=== PATIENT | female | born 1960 | race Caucasian/White ===

== ENCOUNTER → 2018-01-27 | Outpatient (CLI) | payer OTHER, MEDICAID ==
[~2018-01-27] MED LIST: ANTIVERT25 MG PO; ASPIR 8181 MG PO; ATORVASTATIN CA40 MG PO; CLONAZEPAM 1 MG1 M1 PO; CYMBALTA60 MG PO; KEPPRA 500 MG500 M1 PO; LASIX 40 MG TAB40 M2 PO; LISINOPRIL2.5 MG PO; MYRBETRIQ25 MG PO; NEXIUM40 MG PO; NORCO 10-325 T1 EACH PO; OMEPRAZOLE20 MG PO; OXYCONTIN20 M1 PO; PRIMIDONE50 MG PO; PROAIR HFA8.5 GM; VITAMIN B-12500 MCG PO; VITAMIN D2000 UNIT PO; VITAMINC500 PO; XANAX 0.25 MG0.25 MG PO; XANAX1 MG PO; ZOLOFT50 MG PO; ZYPREXA15 MG PO
== END ==
LOC: M.CT 10:43
DX: J43.9 Emphysema, unspecified (principal); R91.1 Solitary pulmonary nodule

== ENCOUNTER → 2018-05-06 | Outpatient (CLI) | payer OTHER, MEDICAID | LOC: M.CT 11:12 | DX: I25.10 Atherosclerotic heart disease of native coronary artery without angina pectoris (principal); R91.1 Solitary pulmonary nodule; J44.9 Chronic obstructive pulmonary disease, unspecified ==

== ENCOUNTER 2018-07-30 09:39 | Emergency (ER) | payer OTHER, MEDICAID ==
[~2018-07-30] VITALS: Ht 165.1 cm; Wt 112.0 kg
[~2018-07-30 09:39] MED LIST changes: -CLONAZEPAM 1 MG1 M1 PO; -MYRBETRIQ25 MG PO; -OMEPRAZOLE20 MG PO; -PRIMIDONE50 MG PO; -PROAIR HFA8.5 GM; -XANAX 0.25 MG0.25 MG PO
[2018-07-30] MEDS ORDERED: XANAX 0.25 MG0.25 MG PO (09:49)
[2018-07-30] MEDS ORDERED: PROAIR HFA8.5 GM (09:49)
[2018-07-30] MEDS ORDERED: CLONAZEPAM 1 MG1 M1 PO (09:49)
[2018-07-30] MEDS ORDERED: PRIMIDONE50 MG PO (09:49)
[2018-07-30] MEDS ORDERED: MYRBETRIQ25 MG PO (09:49)
[2018-07-30] MEDS ORDERED: OMEPRAZOLE20 MG PO (09:49)
[2018-07-30 10:16] LABS: ABSOLUTE BASOPHILS 0.1 thou/uL (0.0-0.2); ABSOLUTE EOSINOPHILS 0.3 thou/uL (0.0-0.7); ABSOLUTE LYMPHOCYTES 2.3 thou/uL (0.8-5.3); ABSOLUTE MONOCYTES 0.7 thou/uL (0.0-1.2); ABSOLUTE NEUTROPHILS 13.1 thou/uL (1.6-8.1); BASOPHILS 0.4 %; EOSINOPHILS 1.8 %; HEMATOCRIT 42.6 % (37.0-47.0); HEMOGLOBIN 13.7 gm/dL (12.0-15.0); LYMPHOCYTES 13.8 %; MCH 30.6 pg (26.0-34.0); MCHC 32.3 g/dL (28.0-37.0); MCV 94.9 fL (80.0-100.0); MONOCYTES 4.1 %; MPV 7.1 fl. (7.2-11.1); NUCLEATED RBCS 0 /100WBC; PLATELET COUNT* 306 thou/uL (150-400); POLYS 79.9 %; RBC 4.49 mil/uL (4.20-5.00); RDW-CV 15.4 % (10.5-14.5); WBC 16.4 thou/uL (4.0-11.0)
[2018-07-30 10:18] LABS: ANION GAP < 0 mmol/L (7-16); BUN 17 mg/dL (7-18); CALCIUM 8.4 mg/dL (8.5-10.1); CHLORIDE 98 mmol/L (98-107); CO2 40 mmol/L (21-32); CREATININE 0.8 mg/dL (0.6-1.3); GLUCOSE 115 mg/dL (70-99); POTASSIUM 4.5 mmol/L (3.5-5.1); SODIUM 136 mmol/L (136-145)
[2018-07-30 10:21] LABS: APTT 24.8 Seconds (25.0-31.3)
[2018-07-30 10:25] LABS: ALBUMIN 3.8 g/dL (3.4-5.0); ALKALINE PHOSPHATASE 66 U/L (46-116); SGOT 17 U/L (15-37); SGPT 26 U/L (30-65); TOTAL BILIRUBIN 0.2 mg/dL (<0.1-1.0); TOTAL PROTEIN 7.2 g/dL (6.4-8.2); TROPONIN-I LEVEL 0.15 ng/mL (<0.06)
[2018-07-30 12:49] VITALS: BP 160/81
--- NOTE | 2018-07-31 10:57 | EKG ---
[place] [address] ELECTROCARDIOGRAM REPORT Name: DAVID PEREIRA Room: [facility]#: [id number] Admission: 07/30/18 Attend Phys: Discharge: 07/30/18 Date of : 58 Report #: [id number] THIS REPORT FOR: //name// [facility] ED Test Date: 2018-07-30 Test Time: 09:59:11 Pat Name: DAVID PEREIRA Department: Room: Gender: F Calculus Tutor: Jackie PAZ : 1960 Requested By: Jadon Wei Order Number: [id number] MD: Fausto Machado Measurements Intervals Violet Rate: 92 P: 51 ID: [id number] QRS: -24 QRSD: 85 T: 45 QT: 343 QTc: 425 Interpretive Statements Sinus rhythm Borderline left axis deviation No previous ECG available for comparison Electronically Signed On 07-31-2018 10:57:20 CDT by Fausto Machado [email or web address] <ELECTRONICALLY SIGNED> By: Rigo Machado MD, [facility] 07/31/18 1057 [phone] Rigo Machado MD, FACC /EPI
== END 2018-07-30 12:49 | disposition short-term general hospital (02) ==
LOC: M.ERS 09:39
PROVIDERS: Family Medicine
DX: S27.321A Contusion of lung, unilateral, initial encounter (principal); S22.41XA Multiple fractures of ribs, right side, initial encounter for closed fracture; J93.9 Pneumothorax, unspecified; J44.9 Chronic obstructive pulmonary disease, unspecified; C71.9 Malignant neoplasm of brain, unspecified; R79.89 Other specified abnormal findings of blood chemistry; Z88.1 Allergy status to other antibiotic agents; Z88.2 Allergy status to sulfonamides; Z88.8 Allergy status to other drugs, medicaments and biological substances; W18.39XA Other fall on same level, initial encounter; Y93.89 Activity, other specified; Y92.098 Other place in other non-institutional residence as the place of occurrence of the external cause; Y99.8 Other external cause status

== ENCOUNTER → 2018-11-01 | Outpatient (CLI) | payer OTHER, MEDICAID ==
[~2018-11-01] MED LIST changes: +B-121000 MC2 PO; +CLONAZEPAM 1 MG1 M1 PO; +DEXAMETHASONE 22 M1 PO; +DULERA 200 MCG/13 GM INH; +LISINOPRIL20 MG PO; +MIRALAX17 GM PO; +MYRBETRIQ25 MG PO; +NORVASC5 MG PO; +OMEPRAZOLE20 MG PO; +POTASSIUM20 PO; +PRIMIDONE50 MG PO; +PROAIR HFA8.5 GM; +TOPAMAX100 MG PO; +TUDORZA PRESS400 MCG INH; +XANAX 0.25 MG0.25 MG PO
--- NOTE | 2018-11-02 20:04 | SLEEP ---
[address] [address] SLEEP STUDY REPORT Name: DAVID PEREIRA Room: [facility]#: [id number] Admission: 11/01/18 Attend Phys: Nora Robledo MD Discharge: Date of : 58 Report #: [id number] THIS REPORT FOR: //name// CC: Nora Galindo This study has been reviewed in its entirety by a board certified sleep specialist DATE OF SERVICE: 11/01/2018 ATTENDING PHYSICIAN: Dr. Germain Robledo. The patient is a 58-year-old who weighs 262 pounds and is 70 inches tall with a BMI of 37.6. The patient's [place] score is 1. The patient also has history of COPD and is on home oxygen up to 5 liters. She was referred for evaluation of sleep apnea. During the night study, the patient spent 181 minutes in bed and slept for 56 minutes with a sleep efficiency of 31%. Sleep latency was 66.8 minutes with a REM latency which was absent. Overall sleep architecture showed normal stage 1 and stage 2 sleep, increased N3 sleep, which was 38% of the total sleep time, and absent REM sleep. During the night of the study, the patient had 1 apnea, which was obstructive, and 13 hypopneas. The patient's apnea-hypopnea index was 15 per hour. REM sleep was not seen. The patient's supine index was 37 per hour. EKG monitoring revealed an average heart rate of 110 beats per minute with a maximum of 163 beats per minute during sleep. PLMS were seen at an index of 168 per hour, but only 1 per hour caused EEG arousals. Nocturnal oximetry study revealed an average oxygen saturation of 91% with the lowest of 82%. Fifty minutes were spent in oxygen saturation between 80-89%. The patient did meet the criteria for CPAP/BiPAP titration study. However, the patient was very restless and dyspneic, along with tachycardic. She was placed on CPAP, but she could not tolerate and BiPAP was attempted. However, after a very short time on BiPAP the patient continued to have progressive dyspnea along with wheezing. As a result, she discontinued the study and was taken to the Emergency Room. The patient would benefit from return to the sleep lab for a titration study once [place] [address] SLEEP STUDY REPORT Name: DAVID PEREIRA Room: [facility]#: [id number] Admission: 11/01/18 Attend Phys: Nora Robledo MD Discharge: Date of : 58 Report #: [id number] IMPRESSION: 1. Mild sleep apnea with worsening during supine sleep. Total apnea-hypopnea index of 15 per hour with a supine apnea-hypopnea index of 37 per hour. Absence of REM sleep and limited sleep time could have underestimated the patient's severity of sleep apnea. 2. Severe periodic limb movements of sleep. 3. Nocturnal hypoxia secondary to sleep apnea and underlying hypoventilation. RECOMMENDATIONS: 1. The patient became tachypneic and hypoxic along with development of bronchospasm. As a result, a CPAP/BiPAP titration study could not be accomplished and the patient was sent to the ER. The patient would benefit from return to the sleep lab for CPAP/BiPAP titration study when she is clinically stable. 2. PLMS can be further treated with dopaminergic agonist agents. The patient should also be further evaluated for symptoms of restless legs during the day. 3. Weight loss is strongly advised. 4. Avoid RECREATION THERAPY DIRECTOR depressants. 5. Cautioned regarding driving until the patient's symptoms of sleep apnea have resolved with the above recommendations. <ELECTRONICALLY SIGNED> By: Reza Lechuga MD 11/02/182003 1623 1659Amarlon Lechuga MD /nt
== END ==
LOC: M.SLEEPLAB 08-16 21:00
DX: G47.33 Obstructive sleep apnea (adult) (pediatric) (principal); R09.02 Hypoxemia; G47.61 Periodic limb movement disorder

== ENCOUNTER 2018-11-02 01:33 | Emergency (ER) | payer OTHER, MEDICAID ==
[~2018-11-02 01:33] MED LIST changes: -B-121000 MC2 PO; -DEXAMETHASONE 22 M1 PO; -DULERA 200 MCG/13 GM INH; -LISINOPRIL20 MG PO; -MIRALAX17 GM PO; -NORVASC5 MG PO; -POTASSIUM20 PO; -TOPAMAX100 MG PO; -TUDORZA PRESS400 MCG INH
[2018-11-02] MEDS ORDERED: NORVASC5 MG PO (23:08)
[2018-11-02] MEDS ORDERED: B-121000 MC2 PO (23:16)
[2018-11-02] MEDS ORDERED: DEXAMETHASONE 22 M1 PO (23:20)
[2018-11-02] MEDS ORDERED: ASPIR 8181 MG PO (23:21)
[2018-11-02] MEDS ORDERED: VITAMINC500 PO (23:22)
[2018-11-02] MEDS ORDERED: OXYCONTIN20 M1 PO (23:30)
[2018-11-02] MEDS ORDERED: POTASSIUM20 PO (23:34)
[2018-11-02] MEDS ORDERED: TOPAMAX100 MG PO (23:39)
[2018-11-02] MEDS ORDERED: TUDORZA PRESS400 MCG INH (23:43)
[2018-11-02] MEDS ORDERED: MIRALAX17 GM PO (23:46)
[2018-11-02] MEDS ORDERED: LISINOPRIL20 MG PO (23:52)
[2018-11-02] MEDS ORDERED: MYRBETRIQ25 MG PO (23:55)
[2018-11-02] MEDS ORDERED: DULERA 200 MCG/13 GM INH (23:56)
== END 2018-11-02 01:50 | disposition left against medical advice (07) ==
LOC: M.ERS 01:33
DX: Z53.21 Procedure and treatment not carried out due to patient leaving prior to being seen by health care provider (principal)

== ENCOUNTER 2018-11-02 17:39 | Inpatient (IN) | payer OTHER, MEDICAID ==
[~2018-11-02] VITALS: Ht 160 cm; Wt 135.6 kg
[2018-11-02 17:46] VITALS: BP 134/111
[2018-11-02 18:17] LABS: BE 3.6 mmol/L (-2 to +3); PO2 120.8 mmHg (75.0-100.0)
[2018-11-02 18:19] LABS: PCO2 75.9 mmHg (35.0-45.0); pH 7.256 (7.340-7.450)
[2018-11-02 18:40] LABS: HEMATOCRIT 36.9 % (37.0-47.0); MCH 31.1 pg (26.0-34.0); MCHC 32.4 g/dL (28.0-37.0); MCV 95.9 fL (80.0-100.0); MPV 6.9 fl. (7.2-11.1); NUCLEATED RBCS 0 /100WBC; PLATELET COUNT* 240 thou/uL (150-400); RBC 3.85 mil/uL (4.20-5.00); RDW-CV 15.1 % (10.5-14.5)
[2018-11-02 18:45] LABS: CALCIUM 8.8 mg/dL (8.5-10.1); CREATININE 1.1 mg/dL (0.6-1.3); POTASSIUM 4.3 mmol/L (3.5-5.1)
[2018-11-02 18:49] LABS: APTT 26.6 Seconds (25.0-31.3); PROTIME 10.6 Seconds (9.20-11.50)
[2018-11-02 18:55] LABS: ALBUMIN 3.1 g/dL (3.4-5.0); TOTAL BILIRUBIN 0.8 mg/dL (<0.1-1.0); TOTAL PROTEIN 6.7 g/dL (6.4-8.2); TROPONIN-I LEVEL 0.09 ng/mL (<0.06)
[2018-11-02 19:08] LABS: ABSOLUTE LYMPHOCYTES 0.7 thou/uL (0.8-5.3); ABSOLUTE MONOCYTES 0.3 thou/uL (0.0-1.2)
[2018-11-02 19:08] LABS: BE 7.6 mmol/L (-2 to +3); PO2 97.4 mmHg (75.0-100.0)
[2018-11-02 19:10] LABS: pH 7.285 (7.340-7.450)
[2018-11-02 19:10] LABS: PLATELET ESTIMATE ADEQUATE
[2018-11-02 19:11] LABS: ANISOCYTOSIS Occasional; CLUMPED PLTS FEW
[2018-11-02 19:11] LABS: PCO2 79.6 mmHg (35.0-45.0)
[2018-11-02 20:01] VITALS: BP 109/67
--- NOTE | 2018-11-02 20:02 | NUR ---
ATTEMPT X [address] LEE CATHETER[address]
[2018-11-02 20:10] VITALS: BP 82/43
[2018-11-02 21:52] LABS: BE 5.8 mmol/L (-2 to +3); HCO3 34.8 mmol/L (22.0-26.0); PO2 86.3 mmHg (75.0-100.0)
[2018-11-02 21:54] LABS: pH 7.277 (7.340-7.450)
[2018-11-02 21:55] LABS: PCO2 76.2 mmHg (35.0-45.0)
[2018-11-02 22:00] VITALS: BP 82/48
--- NOTE | 2018-11-02 22:00 | NUR ---
PATIENT ARRIVED TO UNIT @ 2009. ORIENT X4 DROWSY, LETHARGIC, ABLE TO FALLOW COMMANDS. PLACED LEE PER PT SAFTEY AND RETENTION. SENT UA TO LAB. TOLERATING BIPAP WELL O2 SAT >95. NO FAMILY PRESENT AT BEDSIDE. PT DENIES PAIN, GAVE ORAL CARE PER PATIENT REQUEST. VITAL SINGS WITHIN RANGE. BP SOFT WILL CONTINUE TO MONITOR CLOSELY.
[2018-11-02 22:48] LABS: URINE BILIRUBIN NEGATIVE (Negative); URINE BLOOD NEGATIVE (Negative); URINE CLARITY CLEAR; URINE COLOR YELLOW; URINE GLUCOSE-RANDOM 1+ (Negative); URINE KETONES NEGATIVE (Negative); URINE LEUKOCYTES-REFLEX NEGATIVE (Negative); URINE NITRITE-REFLEX NEGATIVE (Negative); URINE PROTEIN NEGATIVE (Negative); URINE UROBILINOGEN 0.2 E.U./dl (0.2-1.0)
[2018-11-02 23:00] VITALS: BP 92/52
--- NOTE | 2018-11-02 23:00 | NUR ---
PT BLOOD PRESSURE MAP <60. CALLED ORDERS GIVEN. PT ABG REDRAW CAME BACK CRITICAL CALLED INOONAMARINE ORDERS GIVEN. BIPAP SETTING CHANGED. REPLACING MAGNESIUM. PT FAMILY IN ROOM UPDATED ON PLAN OF CARE. DTR REJI PEREIRA WHO PATIENT LIVES WITH BROUGHT UP HER DPOA PAPERWORK COPY MADE IN CHART. DAUGHTER STATED THAT PATIENT DOCTOR DISCONTINUED XANAX FROM HER MEDICATIONS BC SHE WAS ABOUSING THEM DTR STATED "SHE LIKES TAKING THEM BECAUSE THEY KNOCK HER OUT AND SHE DOESNT HAVE TO BE AWAKE". WILL PASS THIS ON TO REPORT AND LET DR. ALVAREZ HAS NO FURTHER CONCERNS AT THIS TIME WILL CONTINUE TO MONITOR CLOSELY.
[2018-11-02] MEDS ORDERED: NORVASC5 MG PO (23:08)
[2018-11-02] MEDS ORDERED: B-121000 MC2 PO (23:16)
[2018-11-02] MEDS ORDERED: DEXAMETHASONE 22 M1 PO (23:20)
[2018-11-02] MEDS ORDERED: ASPIR 8181 MG PO (23:21)
[2018-11-02] MEDS ORDERED: VITAMINC500 PO (23:22)
[2018-11-02] MEDS ORDERED: OXYCONTIN20 M1 PO (23:30)
[2018-11-02] MEDS ORDERED: POTASSIUM20 PO (23:34)
[2018-11-02] MEDS ORDERED: TOPAMAX100 MG PO (23:39)
[2018-11-02] MEDS ORDERED: TUDORZA PRESS400 MCG INH (23:43)
[2018-11-02] MEDS ORDERED: MIRALAX17 GM PO (23:46)
[2018-11-02] MEDS ORDERED: LISINOPRIL20 MG PO (23:52)
[2018-11-02] MEDS ORDERED: MYRBETRIQ25 MG PO (23:55)
[2018-11-02] MEDS ORDERED: DULERA 200 MCG/13 GM INH (23:56)
[2018-11-03] VITALS (18 sets, daily range): BP systolic 93–145; BP diastolic 45–94
[2018-11-03 05:44] LABS: HEMATOCRIT 33.3 % (37.0-47.0); HEMOGLOBIN 10.6 gm/dL (12.0-15.0); MCH 30.6 pg (26.0-34.0); MCHC 31.7 g/dL (28.0-37.0); MCV 96.4 fL (80.0-100.0); MPV 6.9 fl. (7.2-11.1); RBC 3.46 mil/uL (4.20-5.00); RDW-CV 14.8 % (10.5-14.5); WBC 21.6 thou/uL (4.0-11.0)
[2018-11-03 06:04] LABS: ALBUMIN 2.6 g/dL (3.4-5.0); CALCIUM 8.6 mg/dL (8.5-10.1); CREATININE 1.1 mg/dL (0.6-1.3); MAGNESIUM 2.3 mg/dL (1.8-2.4); POTASSIUM 4.5 mmol/L (3.5-5.1); TOTAL BILIRUBIN 0.2 mg/dL (<0.1-1.0); TOTAL PROTEIN 6.3 g/dL (6.4-8.2)
[2018-11-03 07:57] LABS: BE 6.1 mmol/L (-2 to +3); HCO3 33.8 mmol/L (22.0-26.0); pH 7.333 (7.340-7.450)
[2018-11-03 07:58] LABS: PCO2 65.1 mmHg (35.0-45.0)
--- NOTE | 2018-11-03 09:48 | EKG ---
[place] [address] ELECTROCARDIOGRAM REPORT Name: DAVID PEREIRA Room: [address] ADM IN M.R.#: [id number] Admission: 11/02/18 Attend Phys: Rona Cool MD Discharge: Date of : 58 Report #: [id number] THIS REPORT FOR: //name// [facility] ED Test Date: 2018-11-02 Test Time: 17:53:54 Pat Name: DAVID PEREIRA Department: Room: [facility] Gender: F [employer] Reporter: : 1960 Requested By: Roque Ramires Order Number: [id number] MD: Luc Price Measurements Intervals Mclean Rate: 115 P: 89 HI: 143 QRS: 2 QRSD: 76 T: 43 QT: 339 QTc: 469 Interpretive Statements Sinus tachycardia Compared to ECG 07/30/2018 09:59:11 Sinus rhythm no longer present Electronically Signed On 11-03-2018 9:48:25 TEST EVALUATOR by Luc Price [email or web address] <ELECTRONICALLY SIGNED> By: Luc Price MD, [facility] 11/03/18 0948 [id number] Luc Price MD, FACC /EPI
--- NOTE | 2018-11-03 11:45 | NUR ---
MET WITH PT'S DTR, PT SLEEPING AND ON BIPAP. PT LIVES WITH DTR/REJI WHO IS HER DPOA IN APT. PT WAS HAVING SLEEP STUDY PRIOR TO ADMIT AND WAS SENT TO ER. PT HAD RECENT SNF STAY AT [facility] AND THEN HH WITH [facility], WAS DC'D 09/30 PER RAPHAEL AT [facility]. PER DTR, PT USES O2 AT 5L AT HOME AT ALL TIMES THRU [facility]. ALSO USES INHALERS AMD WALKER. PT MAY NEED CPAP OR BIPAP AT DC, DTR AWARE. WILL FOLLOW
--- NOTE | 2018-11-03 14:21 | NUR ---
PT A/O X'S 4. ATTEMPTED TO TITRATE PT TO VENTI MASK 3 TIMES AND PT DESATS ANYWHERE FROM 78-88. PT PLACED BACK ON BIPAP. PT REQUESTING WATER FREQUENTLY. PT EDUCATED ON BIPAP USAGE. ORAL CARE GIVEN Q1 HOUR PER REQUEST OF PATIENT. VSS. DTR AT BEDSIDE.
--- NOTE | 2018-11-03 14:23 | 2DMMODE ---
[place] [address] 2 D/M-MODE ECHOCARDIOGRAM Name: DAVID PEREIRA Room: [facility] IN [facility]#: [id number] Admission: 11/02/18 Attend Phys: Rona Cool, Discharge: Date of : 58 Date of Service: 11/03/18 1423 Report #: [id number] THIS REPORT FOR: //name// APPROVED REPORT Study performed: 11/03/2018 09:15:47 EXAM: Comprehensive 2D, Doppler, and color-flow Echocardiogram Patient Location: In-Patient Room #: [facility] Status: routine BSA: 2.22 HR: 76 bpm BP: 106/58 mmHg Rhythm: NSR Other Information Study Quality: Good Indications Resp failure 2D Dimensions IVSd: 14.15 (7-11mm) LVOT Diam: 20.23 (18-24mm) LVDd: 45.48 mm PWd: 12.01 (7-11mm) Ascending Ao: 33.63 (22-36mm) LVDs: 31.52 (25-40mm) Aortic Root: 30.72 mm Volumes Left Atrial Volume (Systole) LA ESV Index: 37.80 mL/m2 Aortic Valve AoV Peak Robert.: 2.16 m/s AO Peak Gr.: 18.72 mmHg LVOT Max P.18 mmHg AO Mean Gr.: 9.91 mmHg LVOT Mean P.00 mmHg LVOT Max V: 1.75 m/s AO V2 VTI: 34.00 cm LVOT Mean V: 1.12 m/s CAROL (VTI): 2.99 cm2 LVOT V1 VTI: 31.67 cm Mitral Valve E/A Ratio: 1.03 MV Decel. Time: 253.54 ms MV E Max Robert.: 0.88 m/[place] [address] 2 D/M-MODE ECHOCARDIOGRAM Name: DAVID PEREIRA Room: [address] IN .R.#: [id number] Admission: 11/02/18 Attend Phys: Rona Cool, Discharge: Date of : 58 Date of Service: 11/03/18 1423 Report #: [id number] MV PHT: 73.53 ms MVA (PHT): 2.99 cm2 TDI E/Lateral E': 6.29 E/Medial E': 7.33 Medial E' Robert.: 0.12 m/s Lateral E' Robert.: 0.14 m/s Pulmonary Valve PV Peak Robert.: 1.42 m/s PV Peak Gr.: 8.11 mmHg Tricuspid Valve RAP Estimate: 5.00 mmHg TR Peak Gr.: 33.42 mmHg RVSP: 38.00 mmHg PA Pressure: 38.00 mmHg Left Ventricle The left ventricle is normal size. There is normal LV segmental wall motion. Mild concentric left ventricular hypertrophy. Left ventricular systolic function is normal. The left ventricular ejection fraction is within the normal range. LVEF is 60-65%. The left ventricular diastolic function is normal. Right Ventricle The right ventricle is normal size. The right ventricular systolic function is normal. Atria Left atrium is mildly dilated. The right atrium size is normal. Aortic Valve The aortic valve is normal in structure. No aortic regurgitation is present. There is no aortic valvular stenosis. Mitral Valve The mitral valve is normal in structure. There is no mitral valve regurgitation noted. No evidence of mitral valve stenosis. Tricuspid Valve The tricuspid valve is normal in structure. Trace tricuspid regurgitation. estimated pa pressure 40 mm Hg Pulmonic Valve Pulmonic valve is not well visualized. There is no pulmonic [place] [address] 2 D/M-MODE ECHOCARDIOGRAM Name: DAVID PEREIRA Room: [address] IN [facility]#: [id number] Admission: 11/02/18 Attend Phys: Rona Cool, Discharge: Date of : 58 Date of Service: 11/03/18 1423 Report #: [id number] Great Vessels The aortic root is normal in size. IVC is normal in size and collapses >50% with inspiration. Pericardium There is no pericardial effusion. <Conclusion> Mild concentric left ventricular hypertrophy. LVEF is 60-65%. Left atrium is mildly dilated. Trace tricuspid regurgitation. estimated pa pressure 40 mm Hg <ELECTRONICALLY SIGNED> By: Luc Price MD, FACC 11/03/18 1423 142 142 Luc Price MD, FACC /INF
--- NOTE | 2018-11-03 18:21 | NUR ---
PT MOVING BIPAP MASK. BIPAP ALARMING. PT DESATTING. PT EDUCATED ON WEARING BIPAP. DTR REJI EDUCATION ON WEARING BIPAP. DTR REJI ENCOURAGES PT TO WEAR BIPAP APPROPRIATELY. PT STATED, "I WANT TO GO HOME. I WANT TO BE IN MY OWN BED." PT ASKING FOR DTR TO COME AND TAKE PT HOME. DISCUSSED WITH PT HER PULMONARY STATUS. PT CONTINUED TO SAY SHE WANTS TO GO HOME. DISCUSSED WITH PT WHAT WOULD MAKE HER MORE COMFORTABLE IN THE HOSPITAL TO STAY. BED CHANGED. BATH GIVEN. PT SAT IN CHAIR. NOTIFIED ABOUT PT WANTING TO GO HOME AND ASKED IF PT COULD HAVE A DIET FOR DINNER. ORDERS RECEIVED FOR DINNER DIET. PT SAT IN CHAIR FOR MEAL AND PLACED ON 8L HI FLOW NC AND MAINTAINED SAT OF 90-92%. REGUARDING PT STAYING IN HOSPTIAL PT STATED, "I'LL TRY". PRN NICOTINE PATCH APPLIED TO PT.
[2018-11-04] VITALS (13 sets, daily range): BP systolic 140–173; BP diastolic 72–101
[2018-11-04 04:35] LABS: HEMOGLOBIN 10.5 gm/dL (12.0-15.0); MCH 30.8 pg (26.0-34.0); MCHC 32.6 g/dL (28.0-37.0); MCV 94.5 fL (80.0-100.0); MPV 7.5 fl. (7.2-11.1); RBC 3.39 mil/uL (4.20-5.00); RDW-CV 14.6 % (10.5-14.5); WBC 14.5 thou/uL (4.0-11.0)
[2018-11-04 05:00] LABS: ALBUMIN 2.5 g/dL (3.4-5.0); CALCIUM 8.5 mg/dL (8.5-10.1); CREATININE 0.9 mg/dL (0.6-1.3); MAGNESIUM 2.2 mg/dL (1.8-2.4); POTASSIUM 4.3 mmol/L (3.5-5.1); TOTAL BILIRUBIN 0.2 mg/dL (<0.1-1.0); TOTAL PROTEIN 6.1 g/dL (6.4-8.2)
--- NOTE | 2018-11-04 05:37 | NUR ---
PATIENT PROGRESSING TOWARDS. TOLERATED BIPAP WELL OVERNIGHT. VS WNL. NO ACUTE HEMODYNAMIC CHANGES OVERNIGHT. PATIENT WANTS TO BE OFF BIPAP AND GO HOME. CURRENTTLY SLEEPING NO CONCERNS AT THIS TIME.
--- NOTE | 2018-11-04 07:55 | CON ---
[facility] [address] [place] [address] CONSULTATION Name: DAVID PEREIAR Room: [address] IN .R.#: [id number] Admission: 11/02/18 Attend Phys: Rona Cool MD Discharge: Date of : 58 Report #: [id number] THIS REPORT FOR: //name// CC: Arlene Cool MD DATE OF SERVICE: 11/03/2018 ATTENDING PHYSICIAN: Rona Cool M.D. PATIENT LOCATION: She is located in the ICU, bed 5. INDICATION FOR CONSULTATION: COPD, obstructive sleep apnea and respiratory failure. HISTORY OF PRESENT ILLNESS: The patient is a 58-year-old female, current smoker, who was admitted to the Emergency Room and then to the ICU late yesterday evening. She tried to do a sleep study, could not do because of hypoxemia. She was on 2 liters. She went home and then came back. She was more short of breath. She has continued to smoke at home, one pack a day, has worn oxygen at home 2 liters for the last couple of years. Has had multiple exacerbations of her COPD and has been hypercapnic in the past chronically. She is a Do Not Intubate at this time; she may wish for CPR and defibrillation. PAST MEDICAL HISTORY: She has a history of renal insufficiency, seizures, brain tumor, hypertension, anxiety and depression. She had broken ribs from a fall in 2018 and again, oxygen-dependent COPD for the last couple of years. ALLERGIES: SHE HAS ALLERGIES OR INTOLERANCE TO SULFA, TRIMETHOPRIM, GIVE HER MILD NAUSEA AND SKIN RASH. OUTPATIENT MEDICATIONS: Included Lasix 40 mg daily, Apresoline 1 mg b.i.d., clonazepam 1 mg daily, Myrbetriq 25 mg daily for chronic pain and ProAir inhaler. She does DuoNebs treatments at home. She is not steroid dependent at home. Also on Zyprexa 15 mg at bedtime and Keppra 500 mg b.i.d. In the hospital, she is on IV Solu-Medrol, DuoNebs q. 4 hours and IV azithromycin. FAMILY HISTORY: Negative for premature cardiopulmonary disease. SOCIAL HISTORY: She lives with her daughter. Her daughter is durable power of patent attorney. Again, she is an everyday smoker of a pack a day, has a 40 or 66-ukmd-maxy history of smoking. Denies any alcohol or illicit drug use. REVIEW OF SYSTEMS: A 14-point review of systems reviewed and negative, except for pertinent positives [place] [address] CONSULTATION Name: DAVID PEREIRA Room: [address] IN [facility].#: [id number] Admission: 11/02/18 Attend Phys: Rona Cool MD Discharge: Date of : 58 Report #: [id number] PHYSICAL EXAMINATION: GENERAL: This is a 58-year-old female, moderately obese, resting comfortably on the BiPAP. She will respond to commands and answer yes and no questions. VITAL SIGNS: Blood pressure is 124/94, heart rate is 104, respirations are 16 with a backup rate of 16 and temperature is 98 degrees or 36.8 degrees. She is 5 feet 3 inches tall and weight is 108 kilograms, which is 235 pounds and BMI is 42. HEENT: Pupils are midpoint. Mucous membranes are moist. She has a thick neck. She has a full-face BiPAP in place. NECK: Supple, without nodes. No increased jugular venous pressure. CHEST: Reveals inspiratory and expiratory wheezes, with prolonged expiratory phase and expiratory rhonchi. Some use of accessory muscles. Not much air movement. CARDIOVASCULAR: Diminished heart tones, with regular rate and rhythm. Heart rate is 104. ABDOMEN: Obese, without masses or megaly. EXTREMITIES: Some chronic venous stasis changes. No cyanosis, clubbing or edema. Peripheral pulses 2+. NEUROLOGIC: She moves all fours to commands, albeit somewhat weakly. LABORATORY DATA: Laboratory from this morning, from 11/03/2018, shows a hemoglobin of 10; white count 21,600, previously 17,000 twenty four hours ago and platelets are 207,000. Normal differential. Sodium is 137, potassium is 4.5, bicarbonate is chronically elevated at 33, BUN is 23, creatinine 1.1 and glucose 150. AST is 52 and ALT is 58. Total protein is 6.3. Albumin is slightly low at 2.6. Blood gas this morning on 40% BiPAP 18/8 with a backup rate of 16 shows a pO2 of 74, pH of 7.33 and pCO2 of 65 with a bicarbonate of 33. Previous pCO2 levels have been 79 yesterday evening, with a pH of 7.28 and pO2 was 97. Chest x-ray shows COPD and hyperinflation and old rib fractures, right and left, and the heart size upper limits of normal. Bibasilar linear atelectasis is noted. No PFTs on this patient. She did not finish the sleep study; so I am not sure what the sleep study showed, we will see if we get a partial result. IMPRESSION: 1. Acute hypoxic hypercarbic respiratory failure, BiPAP dependent. 2. Severe chronic obstructive pulmonary disease with advanced disease, probably Gold level 4. 3. Hypertension. 4. Systemic inflammatory response syndrome without sepsis. 5. History of brain tumor. 6. History of acute kidney injury. 7. Morbid obesity. PLAN: We will keep on BiPAP and see if we can go to a 40% or 45% [place] [address] CONSULTATION Name: PEREIRADAVID M Room: [address] IN ..#: [id number] Admission: 11/02/18 Attend Phys: Rona Cool MD Discharge: Date of : 58 Report #: [id number] needed. Keep her CO2 level down. The patient wishes to be a Do Not Intubate. She is on steroids, nebs and antibiotics and echo just came back. Her LVEF is 50% to 55%, pulmonary artery pressure mildly elevated at 40, but not severely elevated. Certainly, she needs chronic oxygen and hopefully some BiPAP at home. Prognosis is quite guarded. At least PFTs or spirometry at some point in time as an outpatient for prognostic purposes. Thanks again for allowing us to participate in this critically ill lady's care, who [place] been [place] [id number] consult. <ELECTRONICALLY SIGNED> By: Abhay Mar MD 11/04/18 0755 [id number] Mar MD /nt
[2018-11-04 08:55] LABS: BE 8.5 mmol/L (-2 to +3); HCO3 34.3 mmol/L (22.0-26.0)
[2018-11-04 09:01] LABS: PCO2 52.8 mmHg (35.0-45.0)
--- NOTE | 2018-11-04 10:15 | NUR ---
SONYA TO FOLLOW, MET WITH PT, SHE WAS UP IN CHAIR, REMAINS ON VENTI=MASK. ORDER RECEIVED TO ARRANGE BIPAP OR TRILOGY. PT AGREEABLE AND WANTS TO USE [facility]. TALKED WITH PT ABOUT DC PLAN. SHE LIVES WITH DTR BUT DTR WORKS DURING THE DAY. PT WEAK AND THINKS SHE MAY NEED SNF AGAIN, TO HAVE THERAPY EVALS. IF DOESN'T QUALIFY FOR SNF IS AGREEABLE TO HH AND WOULD WANT TO USE [facility] AGAIN. WILL AWAIT THERAPY EVALS. PT WAS AT [facility] IN PAST, CALL PLACED TO [facility]/ADMISSIONS THERE. WILL FOLLOW
--- NOTE | 2018-11-04 10:26 | NUR ---
2982 ASSUMED CARE OF PATIENT. SEE DOCUMENTED ASSESSMENT. DR CHRISTIE TO SEE PATIENT AND WILL TRY 40% VENTIMASK WITH ABG IN ONE HOUR
--- NOTE | 2018-11-04 13:46 | NUR ---
PATIENT TOLERATING VENTIMASK ALTHOUGH SHE IMMEDIATELY DESATS IF IT IS REMOVED.HAS BEEN UP TO CHAIR TWICE AND TO BSC TWICE
--- NOTE | 2018-11-04 16:55 | NUR ---
1545 pt is now tele status
--- NOTE | 2018-11-04 16:59 | NUR ---
SPEECH HERE TO EVALUATE PATIENT.
--- NOTE | 2018-11-04 17:20 | NUR ---
SBAR FAXED TO [employer]. PATIENT AND FAMILY INFORMED OFPLAN TO TRANSFER
--- NOTE | 2018-11-04 17:22 | CON ---
[address] [address] CONSULTATION Name: DAVID PEREIRA Ariana Room: [address] IN .R.#: [id number] Admission: 11/02/18 Attend Phys: Rona Cool MD Discharge: Date of : 58 Report #: [id number] THIS REPORT FOR: //name// CC: Arlene Cool DATE OF SERVICE: 11/03/2018 HISTORY OF PRESENT ILLNESS: The patient is a 58-year-old single white female who I was asked to see in the hospital today after she was noted to have an abnormal troponin. The history is obtained from the patient. There are no old records available. The patient has a history of obesity. She currently is 5 feet 10 and weighs 250 pounds. She also smokes 3 packs of cigarettes a day and has COPD. She is on home oxygen and has a nebulizer. The patient recently has been coughing, running fever and bit more short of breath. She was finally brought to the Emergency Room last night and admitted. She was placed on BiPAP. She was noted to have an abnormal troponin. I was asked to see her for further evaluation and treatment. She does note occasional chest pressure. She notes occasional skipped heartbeat, but no recent syncope. PAST MEDICAL HISTORY: She has had previous tonsillectomy. She has a history of hypertension and glucose intolerance. No history of hyperlipidemia. MEDICATIONS: Consists of clonazepam, omeprazole, Xanax, Keppra, Lipitor, Xanax, meclizine. ALLERGIES: She has a previous intolerance to DEMEROL and SULFA DRUGS. FAMILY HISTORY: Negative for heart disease. SOCIAL HISTORY: She is , lives by herself in [place]. She is on disability because of chronic back pain. No alcohol abuse. REVIEW OF SYSTEMS: She has sleep apnea. She has had a brain tumor in the past and has had seizures. She has COPD. No liver disease, kidney disease. She has had skin cancer removed in the past. No psychiatric illness. PHYSICAL EXAMINATION: GENERAL: Revealed a large, elderly female sitting in a chair, in moderate respiratory distress with BiPAP in place. VITAL SIGNS: She had a blood pressure of 110/60, pulse 90. She is afebrile. HEENT: She was anicteric, conjunctiva pink. Mucous membranes moist. NECK: Veins difficult to assess due to obesity. CHEST: Revealed expiratory wheezes. CARDIAC: Regular, [place] [address] CONSULTATION Name: DAVID PEREIRA Room: [address] IN [facility]#: [id number] Admission: 11/02/18 Attend Phys: Rona Cool MD Discharge: Date of : 58 Report #: [id number] ABDOMEN: Obese. EXTREMITIES: No pitting edema. Dorsalis pedis pulse 1+ bilaterally. SKIN: Cool and dry. NEUROLOGIC: Nonfocal. LYMPH: No adenopathy. MUSCULOSKELETAL: No joint effusion. IMAGING: Her ECG showed a sinus rhythm with no significant ST or T-wave change. X-rays: She had a portable chest x-ray last night that showed bilateral interstitial infiltrates, evidence of previous rib fractures. She had in July a CT scan of the head without contrast, showed a right-sided mass that is apparently increasing in size with moderate edema noted. She had a CT scan of the chest in July that showed multiple fractures, atelectasis. She had an echocardiogram today that revealed left ventricular hypertrophy, ejection fraction 60%, left atrial enlargement. LABORATORY DATA: Sodium 137, BUN 23, creatinine 1.1, albumin 2.6. Troponin was 0.09, subsequently 0.06. BNP 584. TSH 0.8. White blood cell count 21,000, hemoglobin 12.0. IMPRESSION AND RECOMMENDATIONS: 1. Borderline troponin. Recommend no further cardiac evaluation. 2. Chronic obstructive pulmonary disease. 3. Brain tumor. 4. Tobacco abuse. 5. Morbid obesity. 6. Hypertension. 7. Sleep apnea. <ELECTRONICALLY SIGNED> By: Luc Price MD, [facility] 11/04/18 [phone] [id number] Price MD, FACC /nt
--- NOTE | 2018-11-04 17:28 | NUR ---
PATIENT PROGRESSING TOWARDS GOALS. HAS BEEN ON 40% VENTIMASK MOST OF DAY. UP TO CHAIR AND TO BSC MOST O DAY. WORKED WITH THERAPIES. WILL USE BIPAP AT NIGHT. TO REY TO ROOM 229. PLAN IS FOR SKILLED ON DISCHARGE
--- NOTE | 2018-11-04 18:25 | NUR ---
PT ARRIVED ON THE UNIT FROM ICU. REPORT TAKEN FROM GABRIELA. PT ON CARDIAC MONITER. FOUND A FAN FOR PT PER HER REQUEST. PT ON A VENTI MASK AT 40%. SHE HAS A LEE. PT HAS A R SUBCLAVIAN PICC WITH NS AT 8O.
--- NOTE | 2018-11-04 18:40 | NUR ---
1830 TRANSFERED TO 229 PER WHEELCHAIR WITH ALL RECORDS AND BELONGINGS. REPORT TO CHERYL. SPENCER SAW PATIENT JUST BEFORE TRANSFER
[2018-11-05] VITALS (7 sets, daily range): BP systolic 148–195; BP diastolic 69–102
--- NOTE | 2018-11-05 06:00 | NUR ---
PATIENT PROGRESSING TOWARDS GOALS: PATIENT TOLERATED BIPAP THROUGHOUT THE NIGHT UNTIL 0550 THIS AM WHEN SHE REQUESTED TO GO BACK TO [facility]. PATIENT'S SATS REMAIN >90%. PATIENT RECEIVED LOWER BACK PAIN RELIEF FROM HYDROCODONE AND REPOSITIONING. PATIENT IS SITTING UP IN RECLINER THIS AM WATCHING TELEVISION. CALL LIGHT WITHIN REACH
--- NOTE | 2018-11-05 11:49 | NUR ---
spoke with dr vicente earlier regarding pt elevated blood pressure and home medications not being started, he stated he would look at them
[2018-11-06] VITALS: BP 141/79
[2018-11-06 04:00] VITALS: BP 160/75
--- NOTE | 2018-11-06 07:05 | NUR ---
PATIENT PROGRESSING TOWARDS GOALS: PATIENT ON CPAP THROUGHOUT SHIFT WHILE ASLEEP, AND ON 5L O2 NC WHILE AWAKE. PATIENT DENIES SHORTNESS OF AIR AND DISTRESS. PAIN RELIEVED WITH PRN HYDROCODONE. CALL LIGHT WITHIN REACH
[2018-11-06 08:00] VITALS: BP 199/99
[2018-11-06 11:42] VITALS: BP 184/99
[2018-11-06 16:07] VITALS: BP 195/93
[2018-11-06 20:00] VITALS: BP 160/94
[2018-11-07] VITALS: BP 161/77
[2018-11-07 04:00] VITALS: BP 194/97
--- NOTE | 2018-11-07 06:00 | NUR ---
ASSUMED PT CARE @ 1930. A+O X 4. SR ON MONITOR. SEE EMAR AND COMPUTER CHARTING. PT HAD INCREASED BP AND C\O BACK PAIN AND ANXIETY THIS AM AFTER WAKING UP FOR 0400 VITALS. PT GIVEN PRN NORCO AND KLONOPIN THEN WAS ABLE TO RELAX AND BP RETURNED TO PT'S BASELINE FOR THIS SHIFT. SEE VITALS LOG. CALL LIGHT IN REACH. HOURLY ROUNDING FOR SAFETY.
--- NOTE | 2018-11-07 11:13 | NUR ---
CONTINUE TO FOLLOW. FAXED NOTES AND TRILOGY ORDER TO [facility] AND ALSO MADE HER AWARE PT MAY GO TO SNF. DISCUSSED WITH PT AGAIN, SHE IS AGREEABLE TO SNF AND WOULD STILL LIKE TO GO TO [facility]. UPDATE CALLED TO EVE AT [facility], SHE STATED THEY CAN ONLY PROVIDE BIPAP, NOT TRILOGY FOR PT WHILE SHE'S THERE. DID FAX SLEEP STUDY REPORT AND BIPAP SETTINGS TO HER. THEY HAVE NOT ACCEPTED PT YET, ARE STILL CONSIDERING. ASKED THAT EVE LET CM KNOW DECISION TODAY IN CASE NEED TO FIND ANOTHER SNF. PT TO WORK WITH THERAPIES TODAY FOR UPDATED INFO. WILL FOLLOW
[2018-11-07 12:00] VITALS: BP 159/80
[2018-11-07 16:00] VITALS: BP 124/70
[2018-11-07 19:00] VITALS: BP 157/80
--- NOTE | 2018-11-07 21:45 | NUR ---
PT ASSESSMENT COMPLETE AT START OF SHIFT. PT C/O 05/31 BACK PAIN, CHRONIC. PT TRACING SR ON MONITOR. PT UP SBA TO BSC. VSS. HOURLY ROUNDING FOR PT SAFETY. CLWR.
[2018-11-08] VITALS: BP 139/75
[2018-11-08 04:00] VITALS: BP 151/83
[2018-11-08 05:05] LABS: HEMATOCRIT 35.7 % (37.0-47.0); HEMOGLOBIN 11.7 gm/dL (12.0-15.0); MCH 30.7 pg (26.0-34.0); MCHC 32.7 g/dL (28.0-37.0); MCV 93.9 fL (80.0-100.0); MPV 7.5 fl. (7.2-11.1); RBC 3.8 mil/uL (4.20-5.00); RDW-CV 14.5 % (10.5-14.5); WBC 11.5 thou/uL (4.0-11.0)
--- NOTE | 2018-11-08 05:29 | NUR ---
PT REQUESTED PRN PAIN MED X1, GIVEN WITH LITTLE RELIEF. C/O CHRONIC LOW BACK PAIN. PT UP TO BSC WITH SBA. REMIANS SR ON MONITOR. NO NEW CONCERNS. CLWR.
[2018-11-08 05:34] LABS: ALBUMIN 2.5 g/dL (3.4-5.0); CALCIUM 8.4 mg/dL (8.5-10.1); CREATININE 0.9 mg/dL (0.6-1.3); MAGNESIUM 1.6 mg/dL (1.8-2.4); POTASSIUM 3.8 mmol/L (3.5-5.1); TOTAL BILIRUBIN 0.2 mg/dL (<0.1-1.0)
[2018-11-08 08:26] VITALS: BP 176/83
[2018-11-08 12:25] VITALS: BP 166/83
--- NOTE | 2018-11-08 12:34 | NUR ---
PT ALERT AND ORIENTED. TELE TRACKING NSR, BP ELEVATED 160'S-170'S (MD AWARE) AND VITALS OTHERWISE STABLE ON 5L (REPORTED BASELINE). CALL LIGHT WITHIN REACH. EDUCATED ON SAFETY AND PLAN OF CARE. PLEASE SEE ASSESSMENT FOR ADDITIONAL INFORMATION. WILL CONTINUE TO MONITOR
--- NOTE | 2018-11-08 15:24 | NUR ---
SPOKE WITH [facility], THEY ARE STILL WAITING INSURANCE AUTH FOR SNF.
[2018-11-08 16:35] VITALS: BP 157/75
--- NOTE | 2018-11-08 18:30 | NUR ---
ASSUMED CARE OF PATIENT AT THIS TIME. PAIN MEDS PRIOR TO TRANSFER. ORIENTED TO ROOM AND ENVIROMENT. O2 AT 5L. IV SALINE LOCKED. PATIENT DENIES NEEDS OR CONCERNS. FAMILY AT BEDSIDE. EDUCATED ON FALL PREVENTION. PATIENT REQUESTS TO USE BSC, AND BE UP AD MELISA. CALL LIGHT WITHIN REACH. WILL CONTINUE TO MONITOR.
[2018-11-08 20:00] VITALS: BP 153/80
--- NOTE | 2018-11-09 04:47 | NUR ---
A&Ox4. VITALS STABLE. OX 99% ON 5LO2. CPAP USED FOR SOME OF THE NIGHT, PT SLEPT BETTER WITH JUST NASAL CANNULA. PAIN CONTROLLED. UP AD MELISA TO CAMMODE. PICC IN R CHEST PATENT, SL. CALL LIGHT WITHIN REACH. HOURLY ROUNDING COMPLETE. WILL CONTINUE TO MONITOR.
--- NOTE | 2018-11-09 06:43 | NUR ---
REVIEWED AND AGREE WITH ALL CHARTING AND ASSESSMENTS COMPLETED BY MINISTERIO MCCARTHY.
[2018-11-09 08:45] VITALS: BP 147/72
[2018-11-09] MEDS ORDERED: DEXAMETHASONE 22 M1 PO (09:20)
[2018-11-09] MEDS ORDERED: PULMICORT0.5 MG/2 M INH (09:20)
[2018-11-09] MEDS ORDERED: ANTIVERT25 MG PO (09:20)
[2018-11-09] MEDS ORDERED: MYSOLINE50 MG PO (09:20)
[2018-11-09] MEDS ORDERED: SINGULAIR 10 MG10 M1 PO (09:20)
[2018-11-09] MEDS ORDERED: AMLODIPINE BESYL5 M1 PO (09:20)
[2018-11-09] MEDS ORDERED: NORCO 10-325 T1 EACH PO (09:20)
[2018-11-09] MEDS ORDERED: ALBUTEROL SULFAT2 MG PO (09:20)
[2018-11-09] MEDS ORDERED: IPRAT-ALBUT 0.5-3 ML INH (09:20)
[2018-11-09] MEDS ORDERED: CYMBALTA30 MG PO (09:20)
[2018-11-09] MEDS ORDERED: HUMALOG100 UNIT/1 SUBQ (09:20)
[2018-11-09] MEDS ORDERED: OXYCONTIN10 M1 PO (09:20)
[2018-11-09] MEDS ORDERED: ZYPREXA 5 MG TAB5 M1 PO (09:20)
[2018-11-09] MEDS ORDERED: CLONAZEPAM 1 MG1 M1 PO (09:20)
[2018-11-09] MEDS ORDERED: LISINOPRIL20 MG PO (09:20)
[2018-11-09] MEDS ORDERED: DOXYCYCLINE 10100 MG PO (09:20)
--- NOTE | 2018-11-09 09:58 | NUR ---
ADD'L INFO FAXED TO [facility] FOR [facility]
[2018-11-09 11:29] VITALS: BP 147/72
--- NOTE | 2018-11-09 11:44 | NUR ---
[facility] LEFT A VM THAT THEY HAD OBTAINED INSURNACE AUTHORIZATION FROM INSURANCE. FAXED DISCHARGE SUMMARY TO HER AT [phone]. CALLED HER AND TOLD HER PULMONARY HAD NOT BEEN IN YET SO WILL NEED FOR HIM TO SEE PT.PRIOR TO DISCHARGE TODAY.
--- NOTE | 2018-11-09 17:50 | NUR ---
PATIENT DISCHARGED TO [facility] AT THIS TIME VIA WHEELCHAIR VAN. CENTRAL LINE REMOVED FROM RIGHT CHEST PRIOR TO DC. PATIENT ON 5L O2 AT DC. HOME O2 TANK SENT WITH PATIENT. REPORT CALLED TO [place]. DAUGHTER WITH PATIENT AT TIME OF DC.
== END 2018-11-09 17:00 | DRG 189 ==
LOC: M.ERS 17:39 → M.TBA-ER 19:08 → M.ICU 19:08 → M.2W 11-04 18:40 → M.ORTHSURG 11-08 18:22
PROVIDERS: Emergency Medicine; Internal Medicine Critical Care Medicine; ADMIT Internal Medicine
PROC: 02HV33Z Insertion of Infusion Device into Superior Vena Cava, Percutaneous Approach (ICD-10-PCS; principal; 2018-11-02)
PROC: 5A09357 Assistance with Respiratory Ventilation, Less than 24 Consecutive Hours, Continuous Positive Airway Pressure (ICD-10-PCS; principal; 2018-11-02)
PROC: 5A09357 Assistance with Respiratory Ventilation, Less than 24 Consecutive Hours, Continuous Positive Airway Pressure (ICD-10-PCS; 2018-11-04)
PROC: 5A09357 Assistance with Respiratory Ventilation, Less than 24 Consecutive Hours, Continuous Positive Airway Pressure (ICD-10-PCS; 2018-11-05)
PROC: 5A09357 Assistance with Respiratory Ventilation, Less than 24 Consecutive Hours, Continuous Positive Airway Pressure (ICD-10-PCS; 2018-11-06)
PROC: 5A09357 Assistance with Respiratory Ventilation, Less than 24 Consecutive Hours, Continuous Positive Airway Pressure (ICD-10-PCS; 2018-11-07)
DX: J96.21 Acute and chronic respiratory failure with hypoxia (principal); J44.1 Chronic obstructive pulmonary disease with (acute) exacerbation; R65.10 Systemic inflammatory response syndrome (SIRS) of non-infectious origin without acute organ dysfunction; Z68.43 Body mass index [BMI] 50.0-59.9, adult; F41.9 Anxiety disorder, unspecified; J96.22 Acute and chronic respiratory failure with hypercapnia; E66.01 Morbid (severe) obesity due to excess calories; F32.9 Major depressive disorder, single episode, unspecified; G47.33 Obstructive sleep apnea (adult) (pediatric); I10 Essential (primary) hypertension; F17.210 Nicotine dependence, cigarettes, uncomplicated; I95.9 Hypotension, unspecified; Z99.81 Dependence on supplemental oxygen; Z79.899 Other long term (current) drug therapy; Z88.1 Allergy status to other antibiotic agents; Z88.2 Allergy status to sulfonamides